=== PATIENT | female | born 1970 | race Caucasian/White ===

== ENCOUNTER 2019-02-23 12:03 | Emergency (ER) | payer BC ==
[~2019-02-23] VITALS: Ht 162.6 cm; Wt 95.0 kg
[~2019-02-23 12:03] MED LIST: NO MEDS
[2019-02-23] MEDS ORDERED: COREG6.25 MG PO (12:32)
[2019-02-23] MEDS ORDERED: BACTROBAN TOP (12:50)
[2019-02-23] MEDS ORDERED: BACTRIM DS1 TAB PO (12:50)
[2019-02-23] MEDS ORDERED: KEFLEX500 M1 PO (12:50)
[2019-02-23 13:06] VITALS: BP 156/81
== END 2019-02-23 13:06 | disposition home or self-care (01) | DRG 601 ==
LOC: ED 12:03
DX: N61.1 Abscess of the breast and nipple (principal)

== ENCOUNTER 2020-10-09 18:20 | Emergency (ER) | payer BC ==
[~2020-10-09] VITALS: Ht 149.9 cm; Wt 132.0 kg
[~2020-10-09 18:20] MED LIST changes: +BACTRIM DS1 TAB PO; +BACTROBAN TOP; +COREG6.25 MG PO; +KEFLEX500 M1 PO
[2020-10-09 20:10] LABS: HEMATOCRIT 41.7 % (37.0-47.0); HEMOGLOBIN 13.9 g/dl (12.0-16.0); IMMATURE GRANULOCYTES 0.3 % (0.0-5.0); MEAN CELL VOLUME 100.2 fL CALC (80.0-100.0); MEAN CORPUSCULAR HGB 33.4 pG CALC (26.0-32.0); MEAN CORPUSCULAR HGB CONC 33.3 g/dL CAL (32.0-36.0); NEUT# 5.86 thou/uL (2.00-7.15); RED BLOOD COUNT 4.16 mill/uL (4.20-5.60); RED CELL DISTRI WIDTH 12.6 % (11.5-15.5)
[2020-10-09 20:22] LABS: ALKALINE PHOSPHATASE 58 u/l (38-126); AMYLASE 50 u/l (30-110); ANION GAP 11 (6-22 (CALC)); BUN 6 mg/dL (7-17); BUN/CREATININE RATIO 12 (12-20 (CALC)); CARBON DIOXIDE 25 mmol/l (22-30); CHLORIDE 104 mmol/l (95-108); CREATININE 0.5 mg/dL (0.5-1.0); GFR > 60 ML/MIN (>=60 (CALC)); GFR FOR AFR.AMER. > 60 ML/MIN (>=60 (CALC)); LIPASE 109 u/l (23-300); SODIUM 137 mmol/l (137-146); TOTAL PROTEIN 6.9 g/dL (6.3-8.2)
[2020-10-09 20:24] LABS: BILIRUBIN, TOTAL 0.4 mg/dL (0.0-1.4); SGOT/AST 45 u/l (14-36)
[2020-10-09 21:36] VITALS: BP 142/76
[2020-10-09] MEDS ORDERED: LOSARTAN POTASS50 MG PO (21:44)
[2020-10-09] MEDS ORDERED: LIPITOR10 M1 PO (21:44)
== END 2020-10-09 21:11 | disposition short-term general hospital (02) | DRG 282 ==
LOC: ED 18:20
DX: I21.4 Non-ST elevation (NSTEMI) myocardial infarction (principal); I10 Essential (primary) hypertension; E78.5 Hyperlipidemia, unspecified; E66.9 Obesity, unspecified; F17.210 Nicotine dependence, cigarettes, uncomplicated; Z20.822 Contact with and (suspected) exposure to COVID-19
CPT/HCPCS: J1644